=== PATIENT | female | born 1980 | race African-American/Black ===

== ENCOUNTER 2017-01-23 13:06 | Outpatient (CLI) | payer OTHER ==
--- NOTE | 2017-01-23 17:48 | ULT ---
PELVIC ULTRASOUND: Comparison: None. History: Abnormal menses with pelvic pain. Technique: Multiplanar grayscale and color doppler images were obtained in a transabdominal and trans vaginal pelvic ultrasound. Spectral analysis with doppler waveforms of the ovaries were performed. FINDINGS: Uterus is retroflexed in appearance. Nabothian cysts are seen in the cervix. Small amount of fluid is seen in the endometrial cavity. No focal uterine masses are seen. Endometrial stripe is normal in th ickness measuring 7 mm. Small amount of free fluid is seen in the pelvis. Both ovaries are normal in size and appearance and demonstrate normal internal flow. The dominant follicle seen in the right ovary measuring 1.4 cm in s ize. IMPRESSION: 1. Nabothian cysts. POS: [facility]
== END 2017-01-23 13:07 | disposition home or self-care (01) ==
LOC: ULT 13:06
PROVIDERS: ATTEND Family Medicine
DX: R10.2 Pelvic and perineal pain (principal); N88.8 Other specified noninflammatory disorders of cervix uteri
CPT/HCPCS: 76856